=== PATIENT | male | born 1955 | race Caucasian/White ===

== ENCOUNTER 2024-10-06 10:35 | Inpatient (IN) | payer MEDICARE, OTHER ==
[~2024-10-06] VITALS: Ht 188 cm; Wt 69.4 kg
[2024-10-06] MEDS ORDERED: MAG HYDROX/AL HYDROX/SIMETH 30 ML LIQUID UDC PO PRN (11:30)
[2024-10-06] MEDS ORDERED: ACETAMINOPHEN 325 MG TABLET PO PRN (11:30)
[2024-10-06] MEDS ORDERED: ZOLPIDEM 5 MG TABLET PO PRN ×2 (11:30)
[2024-10-06] MEDS ORDERED: MAGNESIUM HYDROXIDE 30 ML LIQUID UDC PO PRN (11:30)
[2024-10-06 11:38] VITALS: BP 110/57; TEMP 98.5; O2SAT 96
[2024-10-06] MEDS: BLOOD SUGAR DIAGNOSTIC 1 EACH STRIP VI ONE (11:55)
[2024-10-06] MEDS ORDERED: ACET325T53 PO (11:57)
[2024-10-06] MEDS ORDERED: MELA5TAB20 PO (12:24)
[2024-10-06] MEDS ORDERED: OLAN5TAB70 PO ×2 (12:24→13:01)
[2024-10-06] MEDS ORDERED: QUET25TA PO (12:31)
[2024-10-06] MEDS ORDERED: NICO1PAT35 TD (13:01)
[2024-10-06] MEDS ORDERED: POLY17PO4 PO (13:01)
[2024-10-06] MEDS ORDERED: MELA5TAB PO (13:01)
[2024-10-06] MEDS ORDERED: SENN8.6T19 PO (13:01)
[2024-10-06] MEDS: LORAZEPAM 0.5 MG TABLET PO PRN (13:16)
[2024-10-06] MEDS ORDERED: TEMAZEPAM 7.5 MG CAPSULE PO PRN (13:30)
[2024-10-06] MEDS: GABAPENTIN 100 MG CAPSULE PO SCH (14:48)
[2024-10-06] MEDS: QUETIAPINE FUMARATE 25 MG TABLET PO SCH (14:49)
[2024-10-06] MEDS: NICOTINE 14 MG/24HR PATCH TD SCH (15:30)
[2024-10-06 16:25] VITALS: BP 133/93; TEMP 98.1; O2SAT 99
[2024-10-07] MEDS: LORAZEPAM 0.5 MG TABLET PO PRN (06:59)
[2024-10-07 07:19] LABS: BASOPHILS # (AUTO) 0.1 K/UL (0.0-0.2); BASOPHILS % (AUTO) 0.8 % (0.0-2.0); EOSINOPHILS # (AUTO) 0.3 K/uL (0.0-0.7); EOSINOPHILS % (AUTO) 2.4 % (0.0-7.0); HEMATOCRIT 41.1 % (36.7-47.1); LYMPHOCYTES # (AUTO) 4.3 K/uL (0.8-4.8); LYMPHOCYTES % (AUTO) 40.8 % (20.5-51.5); MEAN CORPUSCULAR HEMOGLOBIN 30.1 uug (23.8-33.4); MEAN CORPUSCULAR HGB CONC 34 g/dL (32.5-36.3); MEAN CORPUSCULAR VOLUME 88.1 fL (73.0-96.2); MONOCYTES # (AUTO) 0.7 K/uL (0.1-1.30); MONOCYTES % (AUTO) 6.9 % (0.0-11.0); NEUTROPHILS # (AUTO) 5.2 K/uL (1.8-8.9); NEUTROPHILS % (AUTO) 49.1 % (38.5-71.5); PLATELET COUNT (AUTO) 302 K/uL (152-348); RED BLOOD CELL COUNT(AUTO) 4.66 MIL/uL (4.06-5.63); RED CELL DISTRIBUTION WIDTH 14.3 % (12.1-16.2); WHITE BLOOD COUNT (AUTO) 10.7 K/uL (3.6-10.2)
[2024-10-07 07:21] LABS: DIFFERENTIAL COMMENT 1
[2024-10-07 07:40] VITALS: BP 105/62; TEMP 98; O2SAT 98
[2024-10-07 07:49] LABS: ALBUMIN 3.6 g/dL (3.4-5.0); BILIRUBIN,TOTAL 0.7 mg/dL (0.2-1.0); CREATININE 0.9 mg/dL (0.6-1.3); POTASSIUM 3.9 mmol/L (3.5-5.1); TOTAL PROTEIN, SERUM 7.4 g/dL (6.4-8.2)
[2024-10-07 07:55] LABS: THYROID STIMULATING HORMONE 0.973 mIU/mL (0.358-3.740)
[2024-10-07 08:13] LABS: MAGNESIUM 2.1 mg/dL (1.8-2.4)
[2024-10-07] MEDS: OLANZAPINE 10 MG VIAL IM ONE (12:10)
[2024-10-07] MEDS: diphenhydrAMINE 50 MG/1 ML VIAL IM ONE (13:36)
[2024-10-07] MEDS: HALOPERIDOL LACTATE 5 MG/1 ML VIAL IM ONE (13:36)
[2024-10-07] MEDS: GABAPENTIN 300 MG CAPSULE PO SCH (16:46)
[2024-10-07] MEDS: ATORVASTATIN 20 MG TABLET PO SCH (20:06)
[2024-10-07] MEDS: QUETIAPINE FUMARATE 25 MG TABLET PO SCH (20:07)
[2024-10-08 08:14] VITALS: BP 142/74; TEMP 98; O2SAT 100
[2024-10-08] MEDS: QUETIAPINE FUMARATE 25 MG TABLET PO SCH (13:00)
[2024-10-08] MEDS: ENSURE ENLIVE (VAN) 240 ML LIQUID PO SCH (17:18)
[2024-10-08 20:00] VITALS: BP 102/68; O2SAT 97
[2024-10-09 08:12] VITALS: BP 120/51; TEMP 98; O2SAT 99
[2024-10-09] MEDS: QUETIAPINE FUMARATE 25 MG TABLET PO SCH ×2 (12:13→21:00)
[2024-10-09] MEDS: GABAPENTIN 300 MG CAPSULE PO SCH (12:13)
[2024-10-09 16:38] VITALS: BP 107/62; TEMP 97.9; O2SAT 96
[2024-10-09 19:50] VITALS: BP 107/61; TEMP 97.8; O2SAT 100
[2024-10-11 08:47] VITALS: BP 98/59; TEMP 98; O2SAT 96
[2024-10-11 15:53] VITALS: BP 126/76; TEMP 98; O2SAT 98
[2024-10-11 19:46] VITALS: BP 115/61; TEMP 98.4; O2SAT 92
[2024-10-11] MEDS: GABAPENTIN 300 MG CAPSULE PO SCH (21:16)
[2024-10-11] MEDS: QUETIAPINE FUMARATE 25 MG TABLET PO SCH (21:16)
[2024-10-12 08:20] VITALS: BP 125/84; TEMP 97.7; O2SAT 95
[2024-10-12 16:48] VITALS: BP 138/81; TEMP 98.5; O2SAT 100
[2024-10-12] MEDS ORDERED: OLANZAPINE 5 MG TABLET PO SCH (17:00)
[2024-10-12] MEDS: OLANZAPINE 2.5 MG TABLET PO SCH ×2 (17:21→20:34)
[2024-10-12 20:00] VITALS: BP 145/77; TEMP 97.4; O2SAT 97
[2024-10-13 07:48] VITALS: BP 94/61; TEMP 98; O2SAT 100
[2024-10-14 07:41] VITALS: BP 94/54; TEMP 97.2; O2SAT 97
[2024-10-14 16:00] VITALS: BP 99/51; TEMP 97.8; O2SAT 97
[2024-10-14 20:11] VITALS: BP 111/69; TEMP 97.4; O2SAT 97
[2024-10-15 07:33] VITALS: BP 103/60; TEMP 98; O2SAT 100
[2024-10-15 16:39] VITALS: BP 112/64; TEMP 98; O2SAT 98
[2024-10-15 20:00] VITALS: BP 143/75; TEMP 98.2; O2SAT 98
[2024-10-16 08:18] VITALS: BP 114/56; TEMP 98.5; O2SAT 97
[2024-10-16 16:28] VITALS: BP 122/85; TEMP 97.9; O2SAT 98
[2024-10-16 20:00] VITALS: BP 128/71; TEMP 98.8; O2SAT 96
[2024-10-17 15:21] VITALS: BP 100/56; TEMP 98; O2SAT 96
[2024-10-17 20:00] VITALS: BP 111/60; TEMP 98.4; O2SAT 96
[2024-10-18 07:50] VITALS: BP 99/50; TEMP 98; O2SAT 94
[2024-10-18 15:00] VITALS: BP 110/73; TEMP 98; O2SAT 98
== END 2024-10-18 15:30 | DRG 885 ==
LOC: GPS 10:35
PROVIDERS: ADMIT Psychiatry & Neurology Psychosomatic Medicine; ATTEND Internal Medicine
DX: F29 Unspecified psychosis not due to a substance or known physiological condition (principal); F03.911 Unspecified dementia, unspecified severity, with agitation; F03.93 Unspecified dementia, unspecified severity, with mood disturbance; Z68.1 Body mass index [BMI] 19.9 or less, adult; R62.7 Adult failure to thrive; Z66 Do not resuscitate; Z91.199 Patient's noncompliance with other medical treatment and regimen due to unspecified reason; F10.10 Alcohol abuse, uncomplicated; F17.210 Nicotine dependence, cigarettes, uncomplicated; M15.9 Polyosteoarthritis, unspecified; E78.5 Hyperlipidemia, unspecified; Z86.73 Personal history of transient ischemic attack (TIA), and cerebral infarction without residual deficits; Z79.899 Other long term (current) drug therapy
CPT/HCPCS: 36415; 71045; 83735; 84100; 84443; 85025; 93005; J1200; J1630; J2358

== ENCOUNTER 2024-11-29 05:47 | Inpatient (IN) | payer MEDICARE, OTHER ==
[~2024-11-29] VITALS: Ht 185.4 cm; Wt 69.4 kg
[2024-11-29] MEDS ORDERED: OXCA300O PO (07:51)
[2024-11-29] MEDS ORDERED: OLAN5TAB70 PO (07:51)
[2024-11-29] MEDS ORDERED: OXCA300T4 PO ×2 (07:51)
[2024-11-29] MEDS ORDERED: ATOR20TA PO (07:51)
[2024-11-29] MEDS ORDERED: RISP1TAB7 PO (07:51)
[2024-11-29 07:52] VITALS: BP 98/61; TEMP 97.6; O2SAT 98
[2024-11-29] MEDS ORDERED: MAGNESIUM HYDROXIDE 30 ML LIQUID UDC PO PRN (08:15)
[2024-11-29] MEDS ORDERED: MAG HYDROX/AL HYDROX/SIMETH 30 ML LIQUID UDC PO PRN (08:15)
[2024-11-29] MEDS: BLOOD SUGAR DIAGNOSTIC 1 EACH STRIP VI ONE (09:09)
[2024-11-29] MEDS: LORAZEPAM 0.5 MG TABLET PO PRN (15:40)
[2024-11-29 16:00] VITALS: BP 127/79; TEMP 97.8; O2SAT 98
[2024-11-29] MEDS: risperiDONE-M 0.5 MG TAB.RAPDIS PO SCH (17:04)
[2024-11-29] MEDS: OXCARBAZEPINE 300 MG TABLET PO SCH (17:04)
[2024-11-29 20:00] VITALS: BP 113/77; TEMP 98; O2SAT 98
[2024-11-29] MEDS: OLANZAPINE ZYDIS 5 MG TAB.RAPDIS PO SCH (21:24)
[2024-11-30 07:38] VITALS: BP 102/56; TEMP 97.4; O2SAT 97
[2024-11-30 07:59] LABS: ALBUMIN 3.5 g/dL (3.4-5.0); BILIRUBIN,DIRECT 0.1 mg/dL (0.0-0.2); BILIRUBIN,TOTAL 0.3 mg/dL (0.2-1.0); CALCIUM 8.7 mg/dL (8.5-10.1); CREATININE 0.9 mg/dL (0.6-1.3); POTASSIUM 3.7 mmol/L (3.5-5.1); TOTAL PROTEIN, SERUM 7.1 g/dL (6.4-8.2)
[2024-11-30] MEDS: OLANZAPINE 10 MG VIAL IM ONE (08:29)
[2024-11-30] MEDS: OLANZAPINE ZYDIS 5 MG TAB.RAPDIS PO PRN (13:51)
[2024-11-30 16:45] VITALS: BP 115/84; TEMP 97.7; O2SAT 98
[2024-11-30] MEDS: risperiDONE-M 0.5 MG TAB.RAPDIS PO SCH (16:51)
[2024-11-30] MEDS ORDERED: ACET325T53 PO (18:29)
[2024-11-30] MEDS ORDERED: LORA0.5T48 PO (18:30)
[2024-11-30] MEDS ORDERED: MAG-5 PO (18:30)
[2024-11-30] MEDS ORDERED: MAGN400O6 PO (18:31)
[2024-11-30] MEDS ORDERED: OLAN5TAB70 PO (18:32)
[2024-11-30] MEDS ORDERED: OXCA300T15 PO (18:32)
[2024-11-30] MEDS ORDERED: TEMA7.5C PO (18:34)
[2024-11-30] MEDS ORDERED: RISP2TAB5 PO (18:34)
[2024-11-30 20:43] VITALS: BP 112/76; TEMP 97.8; O2SAT 98
[2024-11-30] MEDS: TEMAZEPAM 7.5 MG CAPSULE PO PRN (22:05)
[2024-12-01 07:43] VITALS: BP 98/58; TEMP 97.2; O2SAT 98
[2024-12-01] MEDS: ENSURE ENLIVE (VAN) 240 ML LIQUID PO SCH (09:25)
[2024-12-01 16:00] VITALS: BP 95/54; TEMP 98.2; O2SAT 98
[2024-12-01 20:00] VITALS: BP 101/59; TEMP 98; O2SAT 95
[2024-12-01] MEDS: ATORVASTATIN 20 MG TABLET PO SCH (21:32)
[2024-12-02 16:33] VITALS: BP 130/92; TEMP 98.5; O2SAT 98
[2024-12-02 21:37] VITALS: BP 140/96; TEMP 97.6; O2SAT 96
[2024-12-03 08:04] VITALS: BP 133/78; TEMP 98; O2SAT 98
[2024-12-03 16:40] VITALS: BP 118/70; TEMP 98.5; O2SAT 100
[2024-12-03 19:56] VITALS: BP 101/53; TEMP 98.1; O2SAT 95
[2024-12-03] MEDS: OLANZAPINE ZYDIS 5 MG TAB.RAPDIS PO SCH (20:56)
[2024-12-04 08:14] VITALS: BP 135/71; TEMP 97.9; O2SAT 100
[2024-12-04 16:34] VITALS: TEMP 97.9
[2024-12-04 19:49] VITALS: BP 128/70; TEMP 97.8; O2SAT 98
[2024-12-04] MEDS: TEMAZEPAM 7.5 MG CAPSULE PO SCH (20:35)
[2024-12-04] MEDS: risperiDONE-M 0.5 MG TAB.RAPDIS PO SCH (20:35)
[2024-12-05 08:05] VITALS: BP 167/88; TEMP 98; O2SAT 96
[2024-12-05] MEDS: OLANZAPINE 10 MG VIAL IM ONE (14:28)
[2024-12-05 15:15] VITALS: BP 101/70; TEMP 98; O2SAT 96
[2024-12-05] MEDS: HALOPERIDOL LACTATE 5 MG/1 ML VIAL IM ONE (16:56)
[2024-12-05] MEDS: diphenhydrAMINE 50 MG/1 ML VIAL IM ONE (16:56)
[2024-12-05 20:00] VITALS: BP 114/63; TEMP 98; O2SAT 98
[2024-12-06] MEDS: risperiDONE-M 0.5 MG TAB.RAPDIS PO SCH ×2 (08:16→20:36)
[2024-12-06 09:13] VITALS: BP 138/84; TEMP 98; O2SAT 98
[2024-12-06] MEDS: OLANZAPINE ZYDIS 5 MG TAB.RAPDIS PO SCH (12:25)
[2024-12-06] MEDS: OXCARBAZEPINE 300 MG TABLET PO SCH (12:25)
[2024-12-06 15:08] VITALS: BP 140/83; TEMP 98; O2SAT 98
[2024-12-06 20:00] VITALS: BP 99/57; TEMP 97.6; O2SAT 96
[2024-12-06] MEDS: TEMAZEPAM 7.5 MG CAPSULE PO PRN (23:15)
[2024-12-07 07:32] VITALS: BP 124/71; TEMP 97.4; O2SAT 98
[2024-12-07 08:12] LABS: BASOPHILS % (AUTO) 0.8 % (0.0-2.0); EOSINOPHILS # (AUTO) 0.3 K/uL (0.0-0.7); EOSINOPHILS % (AUTO) 4.7 % (0.0-7.0); HEMATOCRIT 37.4 % (36.7-47.1); HEMOGLOBIN 12.4 g/dL (12.5-16.3); LYMPHOCYTES # (AUTO) 2.7 K/uL (0.8-4.8); LYMPHOCYTES % (AUTO) 45.1 % (20.5-51.5); MEAN CORPUSCULAR HEMOGLOBIN 29.5 uug (23.8-33.4); MEAN CORPUSCULAR HGB CONC 33 g/dL (32.5-36.3); MEAN CORPUSCULAR VOLUME 88.8 fL (73.0-96.2); MONOCYTES # (AUTO) 0.4 K/uL (0.1-1.30); MONOCYTES % (AUTO) 7.3 % (0.0-11.0); NEUTROPHILS # (AUTO) 2.5 K/uL (1.8-8.9); NEUTROPHILS % (AUTO) 42.1 % (38.5-71.5); PLATELET COUNT (AUTO) 251 K/uL (152-348); RED BLOOD CELL COUNT(AUTO) 4.21 MIL/uL (4.06-5.63); RED CELL DISTRIBUTION WIDTH 14.9 % (12.1-16.2); WHITE BLOOD COUNT (AUTO) 5.9 K/uL (3.6-10.2)
[2024-12-07 08:22] LABS: DIFFERENTIAL COMMENT 1
[2024-12-07 08:40] LABS: ALANINE AMINOTRANSFERASE 67 U/L (16-63); ALBUMIN 3.1 g/dL (3.4-5.0); ALKALINE PHOSPHATASE 121 U/L (50-136); ASPARTATE AMINOTRANSFERASE 37 U/L (15-37); BILIRUBIN,DIRECT 0.1 mg/dL (0.0-0.2); BILIRUBIN,TOTAL 0.3 mg/dL (0.2-1.0); CALCIUM 8.6 mg/dL (8.5-10.1); CARBON DIOXIDE 29 mmol/L (21-32); CHLORIDE 104 mmol/L (98-107); CREATININE 0.6 mg/dL (0.6-1.3); GLUCOSE 79 mg/dL (74-106); PHOSPHOROUS 3.6 mg/dL (2.5-4.9); POTASSIUM 3.8 mmol/L (3.5-5.1); SODIUM SERUM 141 mmol/L (136-145); TOTAL PROTEIN, SERUM 6.6 g/dL (6.4-8.2); UREA NITROGEN, BLOOD 28 mg/dL (7-18)
[2024-12-07 09:11] LABS: THYROID STIMULATING HORMONE 1.641 mIU/mL (0.358-3.740)
[2024-12-07] MEDS: OLANZAPINE 10 MG VIAL IM ONE (10:52)
[2024-12-07] MEDS: LORAZEPAM 2 MG/1 ML VIAL IM ONE (13:11)
[2024-12-07] MEDS: BENZTROPINE MESYLATE 2 MG/2 ML AMPUL IM STA (13:12)
[2024-12-07] MEDS: HALOPERIDOL LACTATE 5 MG/1 ML VIAL IM ONE (13:12)
[2024-12-07 16:11] VITALS: BP 101/69; TEMP 97.2; O2SAT 98
[2024-12-07] MEDS ORDERED: ARIPIPRAZOLE 5 MG TABLET PO SCH ×2 (17:00→21:00)
[2024-12-07 19:58] VITALS: BP 110/65; TEMP 97.3; O2SAT 97
[2024-12-08 07:38] VITALS: BP 134/61; TEMP 98; O2SAT 98
[2024-12-08] MEDS ORDERED: ARIPIPRAZOLE 5 MG TABLET PO SCH (09:00)
[2024-12-08] MEDS: ACETAMINOPHEN 325 MG TABLET PO PRN (09:11)
[2024-12-08] MEDS: ARIPIPRAZOLE 5 MG TABLET PO SCH (13:42)
[2024-12-08 15:42] VITALS: BP 90/46; TEMP 98; O2SAT 98
[2024-12-08 20:00] VITALS: BP 92/51; TEMP 98.3; O2SAT 97
[2024-12-09] MEDS: ARIPIPRAZOLE 5 MG TABLET PO SCH ×2 (08:23→16:47)
[2024-12-09 21:33] VITALS: BP 130/75
[2024-12-10] MEDS: ARIPIPRAZOLE 5 MG TABLET PO SCH (12:11)
[2024-12-10] MEDS: busPIRone 5 MG TABLET PO SCH (18:00)
[2024-12-11 07:26] LABS: BASOPHILS # (AUTO) 0.1 K/UL (0.0-0.2); BASOPHILS % (AUTO) 0.8 % (0.0-2.0); EOSINOPHILS # (AUTO) 0.3 K/uL (0.0-0.7); EOSINOPHILS % (AUTO) 3.6 % (0.0-7.0); HEMATOCRIT 37.4 % (36.7-47.1); HEMOGLOBIN 12.5 g/dL (12.5-16.3); LYMPHOCYTES # (AUTO) 3.2 K/uL (0.8-4.8); LYMPHOCYTES % (AUTO) 42.9 % (20.5-51.5); MEAN CORPUSCULAR HEMOGLOBIN 29.7 uug (23.8-33.4); MEAN CORPUSCULAR HGB CONC 33 g/dL (32.5-36.3); MEAN CORPUSCULAR VOLUME 88.8 fL (73.0-96.2); MONOCYTES # (AUTO) 0.5 K/uL (0.1-1.30); MONOCYTES % (AUTO) 7.2 % (0.0-11.0); NEUTROPHILS # (AUTO) 3.4 K/uL (1.8-8.9); NEUTROPHILS % (AUTO) 45.5 % (38.5-71.5); PLATELET COUNT (AUTO) 275 K/uL (152-348); RED BLOOD CELL COUNT(AUTO) 4.21 MIL/uL (4.06-5.63); RED CELL DISTRIBUTION WIDTH 14.6 % (12.1-16.2); WHITE BLOOD COUNT (AUTO) 7.5 K/uL (3.6-10.2)
[2024-12-11 08:18] VITALS: BP 106/61; TEMP 98.6; O2SAT 96
[2024-12-11] MEDS: busPIRone 5 MG TABLET PO SCH (12:09)
[2024-12-11 22:11] VITALS: BP 97/59; TEMP 97.7; O2SAT 95
[2024-12-12] MEDS: LORAZEPAM 2 MG/1 ML VIAL IM ONE (14:05)
[2024-12-12] MEDS: HALOPERIDOL LACTATE 5 MG/1 ML VIAL IM ONE (14:05)
[2024-12-12] MEDS: diphenhydrAMINE 50 MG/1 ML VIAL IM ONE (14:05)
[2024-12-12 16:30] VITALS: BP 91/44; TEMP 97.9; O2SAT 97
[2024-12-12 20:08] VITALS: BP 118/76; TEMP 98.1; O2SAT 96
[2024-12-13 07:51] VITALS: BP 136/69; TEMP 98.2; O2SAT 96
[2024-12-13] MEDS ORDERED: ARIPIPRAZOLE 5 MG TABLET PO SCH (09:00)
[2024-12-13] MEDS: ARIPIPRAZOLE 10 MG TABLET PO SCH (09:32)
[2024-12-13] MEDS: busPIRone 5 MG TABLET PO SCH (09:33)
== END 2024-12-13 12:00 | DRG 885 ==
LOC: GPS 05:47
PROVIDERS: ADMIT Psychiatry & Neurology Psychosomatic Medicine; ATTEND Internal Medicine
DX: F25.9 Schizoaffective disorder, unspecified (principal); F03.92 Unspecified dementia, unspecified severity, with psychotic disturbance; R73.03 Prediabetes; R62.7 Adult failure to thrive; Z68.20 Body mass index [BMI] 20.0-20.9, adult; M15.9 Polyosteoarthritis, unspecified; Z87.891 Personal history of nicotine dependence; B35.1 Tinea unguium; Z79.899 Other long term (current) drug therapy; E78.5 Hyperlipidemia, unspecified; D64.9 Anemia, unspecified
CPT/HCPCS: 36415; 83735; 84100; 84443; 85025; J0515; J1200; J1630; J2060; J2358